=== PATIENT | female | born 1985 | race Caucasian/White ===

== ENCOUNTER 2020-01-25 01:04 | Emergency (ER) | payer OTHER ==
[~2020-01-25] VITALS: Ht 157.5 cm; Wt 65.8 kg
--- NOTE | 2020-01-25 01:06 | NUR ---
PT [facility]. TAKEN TO BED 7
[2020-01-25 01:09] VITALS: BP 136/42
--- NOTE | 2020-01-25 01:18 | NUR ---
Dr. Priest examining patient.
[2020-01-25] MEDS ORDERED: LORazepam 2 MG/ML VIAL IM ONE (01:25)
--- NOTE | 2020-01-25 01:37 | NUR ---
34 YO FEMALE BIBA CO ANXIETY TODAY. PT HAS A HX OF ANXIETY ATTACKS. TAKES ATARAX AND CONTROL AT HOME. ALLERGIC TO CETIRIZINE
[2020-01-25 01:55] VITALS: BP 129/48
--- NOTE | 2020-01-25 01:56 | NUR ---
Patient discharged with v/s stable. Written and verbal after care instructions given and explained. Patient verbalized understanding. Ambulatory with steady gait. All questions addressed prior to discharge. Advised to follow up with PMD.
== END 2020-01-25 01:56 | disposition home or self-care (01) ==
LOC: MED 01:04
DX: F41.0 Panic disorder [episodic paroxysmal anxiety] (principal); R03.0 Elevated blood-pressure reading, without diagnosis of hypertension; Z88.1 Allergy status to other antibiotic agents
CPT/HCPCS: 96372; 99283; J2060